=== PATIENT | male | born 1960 | race Caucasian/White ===

== ENCOUNTER 2016-05-07 09:51 | Emergency (ER) | payer MEDICAID ==
[2016-05-07 10:06] VITALS: BP 138/85
--- NOTE | 2016-05-07 10:16 | ED Physician Chart ---
Chief Complaint/HPI - Patient Information Date Seen:: 05/07/16 Time Seen:: 10:15 Chief Complaint:: LT. KNEE PAIN X [id number] History of Present Illness:: The patient states that 2-3 weeks ago he began having pain in the left foot with associated swelling. Since then the swelling has progressed up to the level of the knee he now has pain in the left knee. The patient has an equal amount of swelling but without pain in the right lower extremity. Patient has no prior history of DVT, recent surgery, or cancer. The patient reports no trauma or injury to the left lower extremity. The patient does have a prior history of a severe crush injury to the right foot. The patient rates the pain as 10 over 10 severity and describes it as throbbing. It is made worse by weightbearing and when the patient attempts to flex his knee. Relieving factors include nonweightbearing and keeping the leg straight. The patient's onset of symptoms was gradual over the 2-3 week. When the symptoms started. Allergies:: Allergies Allergy/AdvReac Type Severity Reaction Status Date / Time No Known Allergies Allergy Verified 05/07/16 10:00 Vitals:: Vital Signs - 8 hr 05/07/16 10:06 BP 138/85 Historian:: Patient (nursing triage notes reviewed. Pulse of 101 and blood pressure of 138/85. O2 saturation on room air 94%.) Review of Systems - Review of Systems General/Constitutional: No fever, No chills, No weakness, No diaphoresis, Edema Skin: No skin lesions, No rash, No bruising, Other (the patient has noted that he has discoloration of the skin along both the right and the left ankles which is chronic and goes back a number of years.) Head: No headache, No light-headedness Eyes: No loss of vision, No pain, No diplopia ENT: No earache, No sore throat, No tinnitus Neck: No neck pain, No swelling, No stiffness, No mass noted Cardio Vascular: No chest pain, No orthopnea, edema Pulmonary: No cough, No sputum, Other (the patient has dyspnea on exertion when he walks up 3 flights of stairs. No hemoptysis.) GI: No nausea, No vomiting, No diarrhea, No pain, No hematemesis G/U: No dysuria, No frequency, No hematuria Musculoskeletal: Bone or joint pain (the region of the joint pain is localized to the region of the left knee.), No muscle pain Endocrine: No polyuria, No polydipsia Psychiatric: Prior psych history, No anxiety, No suicidal ideation Hematopoietic: No bruising, No lymphadenopathy Allergic/Immuno: No urticaria, No angioedema Neurological: No syncope, No focal symptoms, No weakness, No headache, No seizure, No confusion, No vertigo Past Medical History - Past Medical History Past Medical History: No significant medical hx, Other (the patient notes that he has very poor dental hygiene and this really get that addressed now that he has [employer] health Insurance.) Family History: Other (patient denies a history of hypertension, diabetes, CHF, coronary artery disease.) Social History: Smoker, No Alcohol, Illicit Drug Use (patient uses methamphetamine.), Single, Lives Alone, Other (has a roommate in an apartment house on the third story which he walks up and down to get to.) Employment:: Patient was employed as a cook in the past. Surgical History: None Psychiatricy History: None Family Medical History - Family Member Mother Living Status: Physical Exam - Physical Examination General/Constitutional: Awake, Well-developed, well-nourished, Alert, GCS 15, Non-toxic appearing, Ambulatory Other Gen/Cons comments:: The patient does not appear to be in any significant distress but he rates his pain as 10 over 10 in severity. Head: Atraumatic Eyes: Lids, conjuctiva normal, PERRL, EOMI Other Eyes comments:: She has bilateral arcus senilis which is quite prominent. Skin: No rash Other Skin comments:: There is increased pigmentation noted on both the right and the left feet below the lateral malleolus of the ankle. ENMT: External ears, nose nl Other ENMT comments:: Very poor dental hygiene with only 2 teeth in the jaw region and multiple missing teeth in the upper mouth. Neck: Full ROM w/o pain, No JVD, No nuchal rigidity, No mass, No stridor Respiratory: Nl effort/Exclusion, Clear to Auscultation, No Wheeze/Rhonchi/Rales Cardio Vascular: RRR, No murmur, gallop, rubs, NL S1 S2 Other Cardio Vascular comments:: Patient has good distal pulses in all 4 extremities. Capillary refill in the left foot is normal. GI: No tenderness/rebounding/guarding, No organomegaly, No hernia, Normal BS's, Nondistended, No mass/bruits, No McBurney tenderness Other GI comments:: Rectal examination deferred at my discretion. : No CVA tenderness, NL external genitalia (patient has +2-3 edema in both lower extremities below the knees. He has no tenderness in the right lower extremity but he has moderate to severe tenderness from the left knee down to the left foot. The tenderness is more in the anterior portion of the left lower extremity than the posterior aspect. He had very minimal calf tenderness bilaterally. Negative Homans sign on both sides. Markedly decreased range of motion of the right knee limited to about 10-15 flexion. Unable to perform a drawer test as the patient can't flex to 90. Good lateral and medial stability.) Neuro/Psych: Alert/oriented, Normal sensory exam, Normal motor strength, Judgement/insight normal, Mood normal, No focal deficits Misc: Normal back, No paraspinal tenderness Labs/Radiology/EKG Results - Lab Results Results: VENOUS ULTRASOUND LLE SHOWED NO EVIDENCE FOR DVT Laboratory Tests 05/07/16 05/07/16 05/07/16 10:45 10:45 11:11 WBC 9.5 RBC 4.97 Hgb 14.4 Hct 43.5 MCV 87.4 MCH 29.0 MCHC Differential 33.2 RDW 13.4 Plt Count 280 MPV 7.6 Neutrophils % 67.5 Lymphocytes % 21.9 Monocytes % 8.6 Eosinophils % 1.5 Basophils % 0.5 Sodium 137 Potassium 4.0 Chloride 106 Carbon Dioxide 28.2 Anion Gap 6.8 L BUN 18 Creatinine 0.9 Est GFR ( Amer) > 60.0 Est GFR (Non-Af Amer) > 60.0 BUN/Creatinine Ratio 20.0 Glucose 109 H Calcium 9.4 B-Natriuretic Peptide < 5.0 L The CBC showed no leukocytosis, anemia or platelet dysfunction. The metabolic panel showed electrolytes to all be within normal parameters and no evidence for renal dysfunction. The BNP was within the normal range. Single viewed chest x-ray: Borderline cardiomegaly. NO CHF. No areas of pulmonary infiltrate or consolidation. No pneumothorax. Impression: no acute cardiopulmonary findings. - Radiology Results Results: 2 view study of the left knee shows no fractures or dislocation. There may be some calcification of the blood vessels at the level of the knee. No apparent effusion. No foreign bodies noted. Assessment - Assessment General Assessment: CASE SUMMARY: this 55-year-old male presents with a 2 to 3 week history of pain and swelling in the left lower extremity. The pain and swelling began in the left foot and then progressively spread up the leg to the level of the knee. The patient denies any recent trauma to the left knee or the left ankle. On physical examination the patient was awake and alert and was in moderate distress from his complained of pain. His symptoms were addressed with IV Zofran and morphine with good relief of pain. on physical examination there was bilateral swelling of both lower extremities distal to the knees. There was marked reduction in the range of motion of the left knee. There was moderate tenderness to palpation over the left knee and extending all the way down to the ankle. There was no associated redness or warmth. A Doppler study showed no evidence of DVT. Chest x-ray and laboratory studies were negative for CHF. Clinically, the patient did not appear to have cellulitis or infection of his left lower extremity. A knee immobilizer was applied to the left lower extremity and the patient was discharged with a prescription for [place] 10/325 with the usual precautions. He just recently obtained [facility] coverage. He was advised to obtain a PMD and then to have orthopedic referral for further evaluation of the knee. Discharged in stable condition. MDM DDX SWELLING AND PAIN IN THE LLE: NOT Cellulitis based on the History, examination and laboratory studies. NOT DVT Based on the negative Amaya Doppler study. NOT CHF based on the patient's history, examination, and negative chest x-ray. The BNP was also within the normal range. NOT Septic arthritis based on physical examination, a normal white count and no history of fever or chills. ED Septic Shock - . Is Septic Shock (SBP<90, OR Lactate>4 mmol\L) present?: No - <6hrs of presentation: Vital Signs: Vital Signs - 8 hr 05/07/16 10:06 BP 138/85 Reassessment (Disposition) - Reassessment Reassessment Condition:: Improved - Diagnosis Diagnosis:: 1) PERIPHERAL EDEMA, unclear etiology. 2) INTERNAL DERANGEMENT LEFT KNEE DISCHARGE INSTRUCTIONS: 1) use the [place] as directed for severe pain. No mix it with alcohol and known take it within 6 hours for activities requiring alertness. 2) follow up with the referral for private doctor this coming week. Call and make an appointment to be rechecked. 3) return to the emergency department if your symptoms significantly worsen or for any fever or increased difficulty breathing. - Patient Disposition Discharge/Transfer:: Home ED Discharge Plan - Patient Disposition Admit/Discharge/Transfer: PT DISCHARGED HOME Condition at Disposition: Improved Instructions: Edema, Knee Sprain, [id number], Knee Immobilization Accepting Physician: Isaiah Patton [Active] -
[2016-05-07] MEDS ORDERED: Morphine Sulfate 4 mg/mL 1mL Syr IM ONE (10:44)
[2016-05-07] MEDS ORDERED: Morphine Sulfate 4 mg/mL 1mL Syr ONE (10:48)
[2016-05-07 10:53] LABS: % BASOPHILS 0.5 % (0.0-2.0); % EOSINOPHILS 1.5 % (0.0-5.0); % LYMPHOCYTES 21.9 % (20.0-50.0); % MONOCYTES 8.6 % (2.0-10.0); % NEUTROPHILS 67.5 % (40.0-80.0); HEMATOCRIT 43.5 % (39.0-49.0); HEMOGLOBIN 14.4 gm/dL (13.2-17.3); MEAN CELL VOLUME 87.4 fl (80-99); MEAN CORPUSCULAR HGB CONC 33.2 pg (28.0-36.0); MEAN PLATELET VOLUME 7.6 fl; NEUTROPHILE ABSOLUTE 6.5 Th/cmm (1.8-8.0); PLATELET COUNT 280 Th/cmm (150-400); RED BLOOD COUNT 4.97 Mil/cmm (4.30-5.70); RED CELL DISTRIBUTION WIDTH 13.4 % (11.5-20.0); WHITE BLOOD COUNT 9.5 Th/cmm (4.8-10.8)
[2016-05-07 11:14] LABS: ANION GAP 6.8 (7.0-16.0); BUN - UREA NITROGEN 18 mg/dL (7-25); CALCIUM SERUM 9.4 mg/dL (8.6-10.3); CARBON DIOXIDE 28.2 mEq/L (21.0-31.0); CHLORIDE 106 mEq/L (98-107); CREATININE - SERUM 0.9 mg/dL (0.7-1.3); GLUCOSE 109 mg/dL (70-105); SODIUM SERUM 137 mEq/L (136-145)
--- NOTE | 2016-05-08 09:38 | Diagnostic Imaging Report ---
INDICATION: Shortness of breath and chest pain FINDINGS: Heart size is enlarged..Aorta tortuous.. There are no infiltrates or effusions. Degenerative changes in the thoracic spine. IMPRESSION: Cardiomegaly .. No acute cardiopulmonary pathology.
--- NOTE | 2016-05-08 09:44 | Diagnostic Imaging Report ---
INDICATION: Lower extremity swelling. Rule out deep vein thrombosis. Technique: Duplex venous sonography was performed with real-time and flow sensitive images submitted for evaluation. FINDINGS: Normal phasic venous flow. Veins are fully compressible. No filling defects. IMPRESSION: No evidence of deep vein thrombosis in the left lower extremity .
--- NOTE | 2016-05-08 09:45 | Diagnostic Imaging Report ---
INDICATION: Pain FINDINGS: No fractures or dislocations. No erosions or periosteal reaction. Articular surfaces are smooth. No joint effusion. IMPRESSION: No acute bony pathology.[. Soft tissue swelling about the knee joint. Mild degenerative changes in the patellofemoral joint]
== END 2016-05-07 13:40 | disposition home or self-care (01) ==
LOC: ER 09:51
DX: M23.92 Unspecified internal derangement of left knee (principal); R60.9 Edema, unspecified; F17.200 Nicotine dependence, unspecified, uncomplicated; F15.90 Other stimulant use, unspecified, uncomplicated
CPT/HCPCS: 29505; 36415-UA; 71010-TC; 73560-TC-LT; 80048-TC; 83880-TC; 85025-TC; 93971-TC-LT

== ENCOUNTER 2016-05-21 09:46 | Emergency (ER) | payer MEDICAID ==
--- NOTE | 2016-05-21 09:50 | ED Physician Chart ---
Chief Complaint/HPI - Patient Information Date Seen:: 05/21/16 Time Seen:: 09:50 Chief Complaint:: swelling of the lower extremities History of Present Illness:: 55-year-old male, methamphetamine abuser, complains of acute, constant, worsening, moderate to severe, swelling of the bilateral lower extremities. Symptoms started about one month ago. Has associated low back pain. Reports no injuries. Denies any numbness or tingling of the lower extremities, dysuria , gross hematuria, gross blood in stool, abdominal pain, nausea, vomiting, diarrhea, chest pain, palpitations, headache, acute vision changes. Allergies:: Allergies Allergy/AdvReac Type Severity Reaction Status Date / Time No Known Allergies Allergy Verified 05/07/16 10:00 Historian:: Patient Review:: Nurse's Note Reviewed Review of Systems - Review of Systems Other: Complete system review otherwise unremarkable except as noted in history of present illness. Family Medical History - Family Member Mother Living Status: Labs/Radiology/EKG Results - Lab Results Results: Lab Results 05/21/16 05/21/16 05/21/16 Range/Units 10:06 10:06 10:06 WBC 10.5 (4.8-10.8) Th/cmm RBC 4.89 (4.30-5.70) Mil/cmm Hgb 14.1 (13.2-17.3) gm/dL Hct 42.1 (39.0-49.0) % MCV 86.0 (80-99) fl MCH 28.7 (26.0-30.0) pg MCHC Differential 33.4 (28.0-36.0) pg RDW 13.7 (11.5-20.0) % Plt Count 251 (150-400) Th/cmm MPV 8.1 fl Neutrophils % 67.5 (40.0-80.0) % Lymphocytes % 22.7 (20.0-50.0) % Monocytes % 7.8 (2.0-10.0) % Eosinophils % 1.3 (0.0-5.0) % Basophils % 0.7 (0.0-2.0) % D-Dimer 581 H (100-400) ng/mL Sodium 134 L (136-145) mEq/L Potassium 3.9 (3.5-5.1) mEq/L Chloride 105 (98-107) mEq/L Carbon Dioxide 27.1 (21.0-31.0) mEq/L Anion Gap 5.8 L (7.0-16.0) BUN 17 (7-25) mg/dL Creatinine 0.9 (0.7-1.3) mg/dL Est GFR ( Amer) > 60.0 (>90) ml/min Est GFR (Non-Af Amer) > 60.0 ml/min BUN/Creatinine Ratio 18.9 Glucose 165 H (70-105) mg/dL Whole Bld Lactic Acid 3.36 H* (0.60-1.99) mmol/L Calcium 9.6 (8.6-10.3) mg/dL Total Bilirubin 0.5 (0.3-1.0) mg/dL AST 19 (13-39) U/L ALT 30 (7-52) U/L Alkaline Phosphatase 79 (34-104) U/L B-Natriuretic Peptide (5.0-100.0) pg/mL Total Protein 6.9 (6.0-8.3) gm/dL Albumin 3.9 L (4.2-5.5) gm/dL Globulin 3.0 gm/dL Albumin/Globulin Ratio 1.3 (1.0-1.8) 05/21/16 05/21/16 Range/Units 10:06 11:55 WBC (4.8-10.8) Th/cmm RBC (4.30-5.70) Mil/cmm Hgb (13.2-17.3) gm/dL Hct (39.0-49.0) % MCV (80-99) fl MCH (26.0-30.0) pg MCHC Differential (28.0-36.0) pg RDW (11.5-20.0) % Plt Count (150-400) Th/cmm MPV fl Neutrophils % (40.0-80.0) % Lymphocytes % (20.0-50.0) % Monocytes % (2.0-10.0) % Eosinophils % (0.0-5.0) % Basophils % (0.0-2.0) % D-Dimer (100-400) ng/mL Sodium (136-145) mEq/L Potassium (3.5-5.1) mEq/L Chloride (98-107) mEq/L Carbon Dioxide (21.0-31.0) mEq/L Anion Gap (7.0-16.0) BUN (7-25) mg/dL Creatinine (0.7-1.3) mg/dL Est GFR ( Amer) (>90) ml/min Est GFR (Non-Af Amer) ml/min BUN/Creatinine Ratio Glucose (70-105) mg/dL Whole Bld Lactic Acid 1.13 (0.60-1.99) mmol/L Calcium (8.6-10.3) mg/dL Total Bilirubin (0.3-1.0) mg/dL AST (13-39) U/L ALT (7-52) U/L Alkaline Phosphatase (34-104) U/L B-Natriuretic Peptide < 5.0 L (5.0-100.0) pg/mL Total Protein (6.0-8.3) gm/dL Albumin (4.2-5.5) gm/dL Globulin gm/dL Albumin/Globulin Ratio (1.0-1.8) - Radiology Results Results: Single AP VIEW Portable Chest X-ray was interpreted independently and contemporaneously by Juan R Yu MD: No cardiomegaly Normal mediastinum No lung infiltrates No pneumothorax No soft tissue or bony abnormalities ED Septic Shock - . Is Septic Shock (SBP<90, OR Lactate>4 mmol\L) present?: No Reassessment (Disposition) - Reassessment Reassessment:: Elevated lactic acid but no indication of infection. Patient does admit to using methamphetamines. Likely a result of methamphetamine use. Pending follow -up lactic acid after administering 1 L intravenous normal saline. Second lactic acid after 2 hours is within normal limits at 1.13. Gait at this point is no indication of infection. Ultrasound venous Doppler shows no DVT in the bilateral lower extremities. This 55-year-old male with bilateral lower extremity edema. He's been here previously for the same problem. Had a full workup previously as well which was unremarkable for any acute findings including heart failure and DVT. Patient continues to use methamphetamines. Likely that his symptoms are result of methamphetamine abuse. Stasis or dependent edema. Today is again unremarkable for any heart failure, DVT. Advised the patient that he must discontinue use of methamphetamines. He will need to follow-up with a primary care physician. Return to ER precautions are given. Patient understands and agrees the plan. Blood pressure was noted to be elevated over 120/80. There were no signs of hypertension. Discussed the findings with the patient and recommended that the patient follow up with the primary care physician regarding the elevated blood pressure. Reassessment Condition:: Improved - Diagnosis Diagnosis:: methamphetamine abuse and acute bilateral lower extremity stasis/dependent edema Acute lactic acidosis likely due to methamphetamine use Elevated blood pressure without the diagnosis of hypertension - Aftercare/Follow up Instructions Aftercare/Follow-Up Instructions:: Counseled pt regarding lab results/diagnosis & need follow up, Refer to Discharge Instructions - Patient Disposition Discharge/Transfer:: Home Time:: 12:56 Condition at Disposition:: Improved ED Discharge Plan - Patient Disposition Admit/Discharge/Transfer: PT DISCHARGED HOME Condition at Disposition: Improved Instructions: Methamphetamine Abuse, Complications, Edema, [id number]
[2016-05-21 10:22] LABS: % BASOPHILS 0.7 % (0.0-2.0); % EOSINOPHILS 1.3 % (0.0-5.0); % LYMPHOCYTES 22.7 % (20.0-50.0); % MONOCYTES 7.8 % (2.0-10.0); % NEUTROPHILS 67.5 % (40.0-80.0); HEMATOCRIT 42.1 % (39.0-49.0); HEMOGLOBIN 14.1 gm/dL (13.2-17.3); MEAN CORPUSCULAR HEMOGLOBIN 28.7 pg (26.0-30.0); MEAN CORPUSCULAR HGB CONC 33.4 pg (28.0-36.0); MEAN PLATELET VOLUME 8.1 fl; NEUTROPHILE ABSOLUTE 7.1 Th/cmm (1.8-8.0); PLATELET COUNT 251 Th/cmm (150-400); RED BLOOD COUNT 4.89 Mil/cmm (4.30-5.70); RED CELL DISTRIBUTION WIDTH 13.7 % (11.5-20.0); WHITE BLOOD COUNT 10.5 Th/cmm (4.8-10.8)
[2016-05-21 10:36] LABS: ALB/GLOB RATIO 1.3 (1.0-1.8); ALKALINE PHOSPHATASE 79 U/L (34-104); ANION GAP 5.8 (7.0-16.0); BILIRUBIN,TOTAL 0.5 mg/dL (0.3-1.0); BUN - UREA NITROGEN 17 mg/dL (7-25); BUN/CREATININE RATIO 18.9; CALCIUM SERUM 9.6 mg/dL (8.6-10.3); CARBON DIOXIDE 27.1 mEq/L (21.0-31.0); CHLORIDE 105 mEq/L (98-107); CREATININE - SERUM 0.9 mg/dL (0.7-1.3); GLUCOSE 165 mg/dL (70-105); POTASSIUM SERUM 3.9 mEq/L (3.5-5.1); SGOT 19 U/L (13-39); SGPT/ALT 30 U/L (7-52); SODIUM SERUM 134 mEq/L (136-145)
[2016-05-21] MEDS ORDERED: cefTRIAXone 1 GM in Sodium Chloride 0.9% 50 ML IV ONE (10:42)
[2016-05-21] MEDS ORDERED: Sodium Chloride 0.9% 1,000 ML IV ONE (10:42)
--- NOTE | 2016-05-22 10:39 | Diagnostic Imaging Report ---
Portable chest x-ray HISTORY: Pain The heart size is difficult to assess with portable technique. No focal pulmonary processes. No hilar or mediastinal abnormalities. IMPRESSION: No acute focal pulmonary processes
--- NOTE | 2016-05-22 10:40 | Diagnostic Imaging Report ---
Bilateral lower extremity Doppler venous ultrasound exam HISTORY: Pain/swelling Sonographic sector images were obtained through the deep venous systems of both legs. Associated Doppler data was obtained. The exam demonstrates patency of the common femoral, superficial femoral, popliteal, and posterior tibial veins bilaterally. Specifically, no thrombus is seen. There are normal compressibility and augmentation responses. IMPRESSION: Negative exam for deep vein thrombophlebitis.
== END 2016-05-21 13:30 | disposition home or self-care (01) ==
LOC: ER 09:46
DX: F15.10 Other stimulant abuse, uncomplicated (principal); E87.2 Acidosis; R03.0 Elevated blood-pressure reading, without diagnosis of hypertension
CPT/HCPCS: 99285; 93970; 96365; 71010; 93005; 83880; 36415; 85379; 83605 ×2; 85025; 80053; 87040 ×2; J0696; J7030